=== PATIENT | female | born 1985 | race Caucasian/White ===

== ENCOUNTER 2021-04-20 14:21 | Emergency (ER) | payer BC, OTHER ==
--- NOTE | 2021-04-20 14:29 | ERPHSYRPT ---
- History of Present Illness Time Seen by Provider: 04/20/21 14:28 Source: patient Exam Limitations: no limitations Physician History: This is a 35-year-old white female who has been using a walker for over 2 years. She currently does not have a neurologist but was told by the neurologist that her chronic headaches are secondary to conversion disorder and psychiatric diagnosis of anxiety and depression. She states in the last 2 days she has had worsening headaches and increased pressure in her head. She also states that she had some vision changes and described it as blurred vision. Patient went to [facility] in [place] today and had a CAT scan of the head without contrast obtained as well as a type of ultrasound to evaluate her ocular disks. Patient states that she was told that she had some swelling in her eyes and was told that if her headache was worsening to go to the nearest emergency department. We contacted the office in [place] to get reports of these radiographic studies and we were told by them that patient has had extensive work-up for these symptoms over extended period of time. Although there is swelling present, the patient does not have an emergent need to undergo a lumbar puncture. It is scheduled for next week as an outpatient. She also has an appointment scheduled to see an customer project manager. Patient denies chest pain. She denies shortness of breath. She denies abdominal pain. Patient states that her tests were completed at 2 PM and between 2 PM and 2:30 PM, she began having worsening headache and nausea symptoms and that is why she came into the emergency department to be evaluated. That is, she started having worsening headache in the time it took from her to drive from [facility] to [facility]. Timing/Duration: day(s) (2) Severity: mild Modifying Factors: Improves With: nothing Associated Symptoms: nausea, headaches, weakness Allergies/Adverse Reactions: hydromorphone [From Dilaudid] Adverse Reaction (Severe, Verified 04/20/21 14:45) panic attack Home Medications: Duloxetine HCl 30 mg [Cymbalta 30 MG Capsule] 30 mg PO DAILY 04/20/21 [History] Hydroxyzine HCl 25 mg [Atarax 25 mg] 25 mg PO DAILY 04/20/21 [History] Topiramate 25 mg PO DAILY 07/23/21 [History] Travel Risk - International Travel Have you traveled outside of the country in past 3 weeks: No - Coronavirus Screening Are you exhibiting any of the following symptoms?: No Close contact with a COVID-19 positive Pt in past 14-21 Days: No - Review of Systems Constitutional: Weakness Eyes: Vision Changes (Blurred vision) Ears, Nose, & Throat: No Symptoms Respiratory: No Symptoms Cardiac: No Symptoms Abdominal/Gastrointestinal: No Symptoms Genitourinary Symptoms: No Symptoms Musculoskeletal: No Symptoms Skin: No Symptoms Neurological: Headache Psychological: No Symptoms Endocrine: No Symptoms Hematologic/Lymphatic: No Symptoms Immunological/Allergic: No Symptoms All Other Systems: Reviewed and Negative - Past Medical History Pertinent Past Medical History: Yes - Past Surgical History Past Surgical History: Yes - Nursing Vital Signs Nursing Vital Signs: Initial Vital Signs Temperature 97.8 F 04/20/21 14:33 Pulse Rate 77 04/20/21 14:33 Respiratory Rate 22 04/20/21 14:33 Blood Pressure 104/81 04/20/21 14:33 O2 Sat by Pulse Oximetry 98 04/20/21 14:33 Pain Scale Pain Intensity 8 - Physical Exam General Appearance: no apparent distress, alert, anxiety, obese Eye Exam: PERRL/EOMI, eyes nml inspection Ears, Nose, Throat Exam: normal ENT inspection, moist mucous membranes Neck Exam: normal inspection, non-tender, supple, full range of motion Respiratory Exam: normal breath sounds, lungs clear, airway intact, No chest tenderness, No respiratory distress Cardiovascular Exam: regular rate/rhythm, normal heart sounds, normal peripheral pulses Gastrointestinal/Abdomen Exam: soft, normal bowel sounds, No tenderness Pelvic Exam: not done Rectal Exam: not done Back Exam: normal inspection, normal range of motion, No CVA tenderness, No vertebral tenderness Extremity Exam: normal inspection, normal range of motion, pelvis stable Neurologic Exam: alert, oriented x 3, cooperative, 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 There is no comparison EKG available.) Ordered Tests: Active Orders 24 hr Category Date Time Status EKG-ER Only STAT Care 04/20/21 14:46 Active IV Insertion STAT Care 04/20/21 14:46 Active NPO (ED) STAT Care 04/20/21 14:46 Active CBC W DIFF Stat Lab 04/20/21 15:20 Completed CMP Stat Lab 04/20/21 15:20 Completed UA W/RFX UR CULTURE Stat Lab 04/20/21 14:59 Completed Lab/Rad Data: Laboratory Result Diagrams 04/20/21 15:20 04/20/21 15:20 Laboratory Results 04/20/21 04/20/21 04/20/21 Range/Units 15:20 15:20 14:59 WBC 7.6 (4.0-10.5) K/mm3 RBC 4.64 (4.1-5.4) M/mm3 Hgb 13.4 (12.0-16.0) gm/dl Hct 41.5 (35-47) % MCV 89.4 (78-100) fl MCH 28.9 (26-32) pg MCHC 32.3 (32-36) g/dl RDW 13.3 (11.5-14.0) % Plt Count 194 (150-450) K/mm3 MPV 10.5 (7.5-11.0) fl Gran % 67.5 H (36.0-66.0) % Eos # (Auto) 0.05 (0-0.5) Absolute Lymphs (auto) 1.93 (1.0-4.6) Absolute Monos (auto) 0.45 (0.0-1.3) Lymphocytes % 25.5 (24.0-44.0) % Monocytes % 6.0 (0.0-12.0) % Eosinophils % 0.7 (0.00-5.0) % Basophils % 0.3 (0.0-0.4) % Absolute Granulocytes 5.11 (1.4-6.9) Basophils # 0.02 (0-0.4) Sodium 139 (137-145) mmol/L Potassium 4.5 (3.5-5.1) mmol/L Chloride 102 (98-107) mmol/L Carbon Dioxide 26 (22-30) mmol/L Anion Gap 15.7 H (5-15) MEQ/L BUN 9 (7-17) mg/dL Creatinine 0.79 (0.52-1.04) mg/dL Estimated GFR > 60.0 ML/MIN Glucose 106 (74-106) mg/dL Calcium 9.5 (8.4-10.2) mg/dL Total Bilirubin 0.30 (0.2-1.3) mg/dL AST 20 (14-36) U/L ALT 13 (0-35) U/L Alkaline Phosphatase 74 (38-126) U/L Serum Total Protein 7.2 (6.3-8.2) g/dL Albumin 4.2 (3.5-5.0) g/dL Urine Color STRAW (YELLOW) Urine Appearance CLEAR (CLEAR) Urine pH 7.0 (5-6) Ur Specific [place] 1.031 (1.005-1.025) Urine Protein NEGATIVE (Negative) Urine Ketones NEGATIVE (NEGATIVE) Urine Blood NEGATIVE (0-5) Rai/ul Urine Nitrite NEGATIVE (NEGATIVE) Urine Bilirubin NEGATIVE (NEGATIVE) Urine Urobilinogen NEGATIVE (0-1) mg/dL Ur Leukocyte Esterase NEGATIVE (NEGATIVE) Urine WBC (Auto) NONE (0-5) /HPF Urine RBC (Auto) NONE (0-2) /HPF U Epithel Cells (Auto) NONE (FEW) /HPF Urine Bacteria (Auto) NONE SEEN (NEGATIVE) /HPF Urine Mucus (Auto) SLIGHT (NEGATIVE) /HPF Urine Culture Reflexed NO (NO) Urine Glucose NEGATIVE (NEGATIVE) mg/dL - Progress Progress: unchanged Progress Note: 04/20/21 15:12 I reviewed the radiographic study results obtained today by [facility]. Patient had a bedside ultrasound of bilateral eyes a nd facial nerve that was normal without inflammation. CAT scan of the head was normal today also. There was no evidence of any intracranial abnormality Counseled pt/family regarding: lab results, diagnosis, need for follow-up - Departure Departure Disposition: Home Clinical Impression: Chronic headaches, Anxiety Condition: Stable Critical Care Time: No Additional Instructions: Take your medication as prescribed. Follow-up with your scheduled appointments to have your lumbar puncture performed next week and with your ophthalmology appointment as scheduled.
[2021-04-20 14:45] VITALS: O2SAT 98
[2021-04-20 15:27] LABS: Absolute Neutrophil Ct (ANC) 5.11 (1.4-6.9); BASOPHIL % 0.3 % (0.0-0.4); Basophil (Absolute #) 0.02 (0-0.4); Eosinophil % 0.7 % (0.00-5.0); Eosinophil (Absolute #) 0.05 (0-0.5); Hematocrit 41.5 % (35-47); Hemoglobin 13.4 gm/dl (12.0-16.0); Lymphocyte (Absolute #) 1.93 (1.0-4.6); Lymphocytes % 25.5 % (24.0-44.0); Mean Cell Volume 89.4 fl (78-100); Mean Corpuscular Hemoglobin 28.9 pg (26-32); Mean Corpuscular Hgb Concent. 32.3 g/dl (32-36); Mean Platelet Volume 10.5 fl (7.5-11.0); Monocyte (Absolute #) 0.45 (0.0-1.3); Neutrophil % 67.5 % (36.0-66.0); Platelet Count 194 K/mm3 (150-450); Red Blood Count 4.64 M/mm3 (4.1-5.4); Red Cell Distribution Width 13.3 % (11.5-14.0); White Blood Count 7.6 K/mm3 (4.0-10.5)
[2021-04-20 15:31] LABS: Appearance CLEAR (CLEAR); Bilirubin NEGATIVE (NEGATIVE); Blood NEGATIVE Ery/ul (0-5); Glucose NEGATIVE (NEGATIVE); Ketones NEGATIVE (NEGATIVE); Leukocyte Esterase NEGATIVE (NEGATIVE); Mucus SLIGHT /HPF (NEGATIVE); Nitrite NEGATIVE (NEGATIVE); Protein,Urine Dip NEGATIVE (Negative); Specific Gravity 1.031 (1.005-1.025); Urobilinogen NEGATIVE mg/dL (0-1)
[2021-04-20 15:40] LABS: ALBUMIN 4.2 g/dL (3.5-5.0); ALKALINE PHOSPHATASE 74 U/L (38-126); ANION GAP 15.7 MEQ/L (5-15); BLOOD UREA NITROGEN 9 mg/dL (7-17); CHLORIDE 102 mmol/L (98-107); Calcium 9.5 mg/dL (8.4-10.2); Carbon Dioxide 26 mmol/L (22-30); Creatinine 1 0.79 mg/dL (0.52-1.04); EST GLOMERULAR FILTRATION RATE > 60.0 ML/MIN; Glucose 106 mg/dL (74-106); Potassium 4.5 mmol/L (3.5-5.1); SGOT/AST 20 U/L (14-36); SGPT/ALT 13 U/L (0-35); SODIUM 139 mmol/L (137-145); Total Protein 7.2 g/dL (6.3-8.2)
[2021-04-20 15:51] LABS: Bacteria NONE SEEN /HPF (NEGATIVE)
[2021-04-20 16:13] VITALS: BP 101/64; PULSE 72
== END 2021-04-20 16:17 | disposition home or self-care (01) ==
LOC: ED 14:21
DX: R51.9 Headache, unspecified (principal); F41.9 Anxiety disorder, unspecified
CPT/HCPCS: 36415; 80053; 81001; 85025; 93005; 99284